=== PATIENT | female | born 2000 | race Caucasian/White ===

== ENCOUNTER 2019-03-11 15:31 | Emergency (ER) | payer MEDICAID, BC ==
[2019-03-11] MEDS: KETOROLAC 30 MG INJ IM (17:04)
== END 2019-03-11 18:18 | disposition home or self-care (01) ==
LOC: FTE 15:31
DX: S99.911A Unspecified injury of right ankle, initial encounter (principal); W18.39XA Other fall on same level, initial encounter; Y92.9 Unspecified place or not applicable
CPT/HCPCS: 29515; 73610-RT; 73630; 81025; 96372; 99284-25